=== PATIENT | male | born 1995 | race Two or more races ===

== ENCOUNTER 2018-08-02 04:33 | Emergency (ER) | payer OTHER ==
[~2018-08-02] VITALS: Ht 160 cm; Wt 75.0 kg
[2018-08-02 05:08] VITALS: BP 137/94
== END 2018-08-02 05:10 ==
LOC: ER 04:35
DX: Z02.89 Encounter for other administrative examinations (principal); Z72.89 Other problems related to lifestyle; V49.88XA Car occupant (driver) (passenger) injured in other specified transport accidents, initial encounter; Y93.89 Activity, other specified; Y92.413 State road as the place of occurrence of the external cause; Y99.9 Unspecified external cause status
CPT/HCPCS: 99283